=== PATIENT | male | born 1945 | race Caucasian/White ===

== ENCOUNTER 2022-12-16 11:49 | Outpatient (CLI) | payer MEDICARE | END 2022-12-16 11:50 | disposition home or self-care (01) | LOC: MADLAB 11:49 | PROVIDERS: ATTEND Internal Medicine | DX: J45.50 Severe persistent asthma, uncomplicated (principal); J34.89 Other specified disorders of nose and nasal sinuses | CPT/HCPCS: 70220; 71046 ==

== ENCOUNTER 2024-05-09 07:35 | Emergency (ER) | payer MEDICARE ==
[2024-05-09] MEDS ORDERED: Lidocaine 1% w/Epinephrine 1:100K 20 ML VIAL ONE (08:31)
[2024-05-09] MEDS ORDERED: Boostrix 0.5 ML (Tdap) VIAL (>/=7 yrs of age) ONE (08:31)
[2024-05-09] MEDS ORDERED: Bacitracin 1 PK ONE (08:31)
== END 2024-05-09 09:35 | disposition home or self-care (01) ==
LOC: MADERS 07:35
DX: S01.01XA Laceration without foreign body of scalp, initial encounter (principal); I10 Essential (primary) hypertension; Z23 Encounter for immunization; Z79.899 Other long term (current) drug therapy; W18.30XA Fall on same level, unspecified, initial encounter
CPT/HCPCS: 12002; 70450; 90471; 90715

== ENCOUNTER 2024-05-19 10:01 | Emergency (ER) | payer MEDICARE ==
[2024-05-19] MEDS ORDERED: Bacitracin 1 PK ONE (11:05)
== END 2024-05-19 11:14 | disposition home or self-care (01) ==
LOC: MADERS 10:01
DX: S01.01XD Laceration without foreign body of scalp, subsequent encounter (principal); I10 Essential (primary) hypertension; W19.XXXD Unspecified fall, subsequent encounter

== ENCOUNTER 2024-05-26 10:18 | Emergency (ER) | payer MEDICARE | END 2024-05-26 11:50 | disposition home or self-care (01) | LOC: MADERS 10:18 | DX: S01.01XD Laceration without foreign body of scalp, subsequent encounter (principal); Z48.02 Encounter for removal of sutures; J44.9 Chronic obstructive pulmonary disease, unspecified; I10 Essential (primary) hypertension; Z87.891 Personal history of nicotine dependence; X58.XXXD Exposure to other specified factors, subsequent encounter ==

== ENCOUNTER 2024-09-01 14:33 | Emergency (ER) | payer MEDICARE | END 2024-09-01 15:49 | LOC: MADERS 14:33 | DX: S00.03XA Contusion of scalp, initial encounter (principal); I10 Essential (primary) hypertension; J44.9 Chronic obstructive pulmonary disease, unspecified; H61.23 Impacted cerumen, bilateral; Z87.891 Personal history of nicotine dependence | CPT/HCPCS: 70450; 72125 ==